=== PATIENT | female | born 1960 | race Caucasian/White ===

== ENCOUNTER 2017-04-18 10:44 | Emergency (ER) | payer MEDICARE, MEDICAID ==
--- NOTE | 2017-04-18 12:22 | ED Physician Documentation ---
PD HPI HEENT - Stated complaint Stated Complaint: SOA/VOMITING - Chief complaint Chief Complaint: Neuro - History obtained from History obtained from: Patient - History of Present Illness Timing - onset: How many days ago (3) Timing - duration: Days (3) Timing - details: Gradual onset, Waxing and waning (with worse and consistent symptoms today, assoicated now with vomiting with head movement.) Location: Other (having vertigo with head movement and change position.). No: Right ear, Left ear, Throat Worsens: Position (movement) Associated symptoms: No: Fever, Congestion, Swollen nodes, Facial swelling, Headache, Cough Similar symptoms before: Has not had sx before Recently seen: Not recently seen Review of Systems Constitutional: denies: Fever, Chills Ears: reports: Loss of hearing (slightly diminished right side.). denies: Ear pain, Drainage/discharge Nose: denies: Rhinorrhea / runny nose, Congestion, Sinus pressure / pain Throat: denies: Sore throat Respiratory: denies: Cough GI: reports: Nausea, Vomiting. 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 - Present Medications Home Medications: Ambulatory Orders Medication Instructions Recorded Confirmed Baclofen [Lioresal] 20 mg PO TID 01/24/13 04/18/17 Omeprazole 20 mg PO BID 01/24/13 04/18/17 Dexamethasone [Decadron] 4 mg PO DAILY #5 tablet 04/18/17 Meclizine [Antivert] 25 mg PO Q6H PRN 04/18/17 04/18/17 Meclizine [Antivert] 25 mg PO Q6H PRN #30 tablet 04/18/17 diazePAM [Diazepam] 5 mg PO TID PRN #15 tablet 04/18/17 - Allergies Allergies/Adverse Reactions: Allergies Allergy/AdvReac Type Severity Reaction Status Date / Time Tetracyclines Allergy Itching Verified 04/18/17 10:50 - Social History Does the pt smoke?: Yes Smoking Status: Current every day smoker Does the pt drink ETOH?: No Does the pt have substance abuse?: No - Immunizations Immunizations are current?: Yes PD ED PE NORMAL - Vitals Vital signs reviewed: Yes - General General: Alert and oriented X 3, No acute distress, Well developed/nourished - HEENT HEENT: PERRL, EOMI (with horizontal nystagmus to the right. 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, No motor deficit, No sensory deficit, Normal speech Eye Opening: Spontaneous Motor: Obeys Commands Verbal: Oriented GCS Score: 15 - Psych Psych: Normal mood, Normal affect Results - Vitals Vitals: Vital Signs - 24 hr 04/18/17 04/18/17 04/18/17 10:47 11:54 12:34 Temperature 36.0 C L 36.0 C L 36.9 C Heart Rate 85 76 87 Respiratory 20 28 H 24 Rate Blood Pressure 162/105 H 146/87 H 142/79 H O2 Saturation 98 100 98 04/18/17 04/18/17 04/18/17 13:07 14:13 14:53 Temperature 36.6 C 36.9 C 36.6 C Heart Rate 79 87 Respiratory 16 15 16 Rate Blood Pressure 153/80 H 147/83 H 154/91 H O2 Saturation 100 100 100 Oxygen O2 Source Room air - Labs Labs: Laboratory Tests 04/18/17 04/18/17 04/18/17 12:05 12:14 12:17 WBC 11.6 H RBC 4.80 Hgb 14.0 Hct 42.2 MCV 88.0 MCH 29.2 MCHC 33.2 RDW 13.6 Plt Count Not Reportable MPV 8.4 Neut # 9.6 H Lymph # 1.5 [place] # 0.4 Eos # 0.0 Baso # 0.1 Absolute Nucleated RBC 0.00 Nucleated RBC % 0.0 Manual Slide Review Indicated Platelet Morphology PLATELET CLUMPING Sodium 135 Potassium 4.0 Chloride 102 Carbon Dioxide 24 Anion Gap 9.0 BUN 16 Creatinine 0.7 Estimated GFR (MDRD) 86 L Glucose 127 H Calcium 8.8 Magnesium 1.7 Total Bilirubin 0.5 AST 22 ALT 19 Alkaline Phosphatase 73 Total Protein 7.8 Albumin 3.8 Globulin 4.0 Albumin/Globulin Ratio 1.0 Lipase 23 Urine Color Urine Clarity Urine pH Ur Specific [place] Urine Protein Urine Glucose (UA) Urine Ketones Urine Occult Blood Urine Nitrite Urine Bilirubin Urine Urobilinogen Ur Leukocyte Esterase Urine RBC Urine WBC Ur Squamous Epith Cells Urine Bacteria Ur Microscopic Review Urine Culture Comments 04/18/17 14:00 WBC RBC Hgb Hct MCV MCH MCHC RDW Plt Count MPV Neut # Lymph # [place] # Eos # Baso # Absolute Nucleated RBC Nucleated RBC % Manual Slide Review Platelet Morphology Sodium Potassium Chloride Carbon Dioxide Anion Gap BUN Creatinine Estimated GFR (MDRD) Glucose Calcium Magnesium Total Bilirubin AST ALT Alkaline Phosphatase Total Protein Albumin Globulin Albumin/Globulin Ratio Lipase Urine Color LT. YELLOW Urine Clarity CLEAR Urine pH 7.0 Ur Specific [place] 1.010 Urine Protein NEGATIVE Urine Glucose (UA) NEGATIVE Urine Ketones NEGATIVE Urine Occult Blood NEGATIVE Urine Nitrite NEGATIVE Urine Bilirubin NEGATIVE Urine Urobilinogen 0.2 (NORMAL) Ur Leukocyte Esterase TRACE H Urine RBC 0-5 Urine WBC 0-3 Ur Squamous Epith Cells RARE Squamous Urine Bacteria Rare Ur Microscopic Review INDICATED Urine Culture Comments INDICATED - Rads (name of study) head CT Radiology: Prelim report reviewed (normal), EMP read contemporaneously PD MEDICAL DECISION MAKING - ED course Complexity details: reviewed results (head CT okay and labs are okay. Her symptoms sound peripheral vertigo and I know CT is not as good as MRI, I feel this is reasonable screening at this point. Discussed with patient and she is okay with workup at this point and feeling much better with meds here. She feels wanting to head home. ), considered differential, d/w patient Departure - Departure Disposition: 01 Home, Self Care Clinical Impression: Vertigo Condition: Stable Record reviewed to determine appropriate education?: Yes Instructions: ED Vertigo Unspecified Prescriptions: Dexamethasone [Decadron] 4 mg PO DAILY #5 tablet diazePAM [Diazepam] 5 mg PO TID PRN #15 tablet PRN Reason: Dizziness Meclizine [Antivert] 25 mg PO Q6H PRN #30 tablet PRN Reason: Vertigo Comments: Normal diet and fluids. Have slow movements to lessen the vertigo. Decadron is a steroid anti-inflammatory use it daily to try to decrease the irritation in the inner ear. Use meclizine every 6-8 hours as needed for dizziness. If this is not adequate enough, add diazepam as well for the dizziness. Both will make a bit sleepy. Drink lots of fluids. Your blood tests and CT scan appear normal. The sounds like inner ear dizziness. Follow-up with your primary care if not improved over the next 3 or 4 days. Discharge Date/Time: 04/18/17 14:54
[2017-04-18 12:31] LABS: BASOPHILS # (AUTO) 0.1 10^3/uL (0.0-0.1); BASOPHILS % (AUTO) 0.4 %; EOSINOPHILS % (AUTO) 0.3 %; HCT - HEMATOCRIT 42.2 % (37.0-47.0); LYMPHOCYTES # (AUTO) 1.5 10^3/uL (1.5-3.5); MEAN CORPUSCULAR HEMOGLOBIN 29.2 pg (27.0-31.0); MEAN CORPUSCULAR HGB CONC 33.2 g/dL (32.0-36.0); MEAN PLATELET VOLUME 8.4 fL (7.9-10.8); MONOCYTES # (AUTO) 0.4 10^3/uL (0.0-1.0); MONOCYTES % (AUTO) 3.5 %; NEUTROPHILS # (AUTO) 9.6 10^3/uL (1.5-6.6); NEUTROPHILS % (AUTO) 82.8 %; RED CELL DISTRIBUTION WIDTH 13.6 % (12.0-15.0); UNCORRECTED WHITE BLOOD COUNT 12.9 x10^3/uL; WHITE BLOOD COUNT 11.6 x10^3/uL (4.8-10.8)
[2017-04-18 12:33] LABS: BILIRUBIN,TOTAL 0.5 mg/dL (0.2-1.0); CALCIUM 8.8 mg/dL (8.5-10.3); CREATININE 0.7 mg/dL (0.4-1.0); TOTAL PROTEIN 7.8 g/dL (6.7-8.2)
[2017-04-18] MEDS ORDERED: SODIUM CHLORIDE 0.9% 1,000 ML IV ONE (12:42)
[2017-04-18] MEDS ORDERED: diazePAM INJ 5 MG/ML SYRINGE IVP STA (12:43)
[2017-04-18] MEDS ORDERED: MECLIZINE 12.5 MG TABLET PO STA (12:43)
[2017-04-18] MEDS ORDERED: DEXAMETHASONE 10 MG/ML VIAL IVP STA (12:43)
[2017-04-18] MEDS ORDERED: ONDANSETRON 4 MG/2 ML VIAL IVP STA (12:43)
[2017-04-18 12:50] LABS: PLATELET MORPHOLOGY PLATELET CLUMPING (NORMAL)
[2017-04-18] MEDS ORDERED: DEXAMETHASONE 10 MG/ML VIAL ONE (12:57)
[2017-04-18] MEDS ORDERED: diazePAM INJ 5 MG/ML SYRINGE ONE (12:57)
[2017-04-18] MEDS ORDERED: MECLIZINE 12.5 MG TABLET PO ONE (12:58)
[2017-04-18] MEDS ORDERED: ONDANSETRON 4 MG/2 ML VIAL ONE (12:58)
--- NOTE | 2017-04-18 13:55 | CT Preliminary Report ---
Exam: CT HEAD W/O IMPRESSION: Normal head CT. [facility] SITE ID: [id number]
--- NOTE | 2017-04-18 13:58 | CT Report ---
EXAM: CT HEAD EXAM DATE: 04/18/2017 01:37 PM. CLINICAL HISTORY: Dizziness for few days. COMPARISON: 01/24/2013. TECHNIQUE: Multiaxial CT images were obtained from the foramen magnum to the vertex. Reformats: Coron al. IV contrast: None. In accordance with CT protocol optimization, one or more of the following dose reduction techniques w ere utilized for this exam: automated exposure control, adjustment of mA and/or KV based on patient s ize, or use of iterative reconstructive technique. FINDINGS: Parenchyma: No intraparenchymal hemorrhage. No evidence of mass, midline shift, or CT findings of inf arction. Owens-white differentiation is distinct. Extraaxial Spaces: Normal for age. No subdural or epidural collections identified. Ventricles: Normal in size and position. Sinuses and Orbits: Imaged paranasal sinuses, orbits, and mastoids show no significant abnormality. Bones: No evidence of fracture or calvarial defect. Other: None. IMPRESSION: Normal head CT. [facility] Referring Provider Line: [phone] SITE ID: [id number]
[2017-04-18 14:07] LABS: BILIRUBIN,URINE NEGATIVE (NEGATIVE)
[2017-04-18 14:11] LABS: UA w/ MICROSCOPIC CHARGE YES
[2017-04-18 14:17] LABS: UR CULTURE IF IND INDICATED
[2017-04-18 14:23] LABS: WBC,URINE 0-3 /HPF (0-5)
[2017-04-18 14:54] VITALS: BP 154/91
== END 2017-04-18 14:54 | disposition home or self-care (01) ==
LOC: ED 10:44
DX: R42 Dizziness and giddiness (principal); F17.200 Nicotine dependence, unspecified, uncomplicated
CPT/HCPCS: 36415; 70450; 80053; 81001; 83690; 83735; 85025; 87086; 93005; 96361; 96374; 96375; 99283; 99284; A9270; 81003

== ENCOUNTER 2020-12-28 19:53 | Emergency (ER) | payer MEDICARE, MEDICAID ==
[2020-12-28] MEDS ORDERED: HYDROmorphone 1 MG/ML CARPUJECT IVP STA (21:16)
[2020-12-28] MEDS ORDERED: SODIUM CHLORIDE 0.9% 1,000 ML IV STA (21:16)
[2020-12-28] MEDS ORDERED: METOCLOPRAMIDE 10 MG/2 ML VIAL IVP STA (21:17)
[2020-12-28] MEDS ORDERED: diphenhydrAMINE INJ 50 MG/ML VIAL IVP STA (21:17)
--- NOTE | 2020-12-28 21:22 | ED Physician Documentation ---
History of Present Illness - Stated complaint Stated Complaint: MIGRAINE,NAUSEA - Chief complaint Chief Complaint: Neuro - History obtained from History obtained from: Patient - Additonal information Additional information: 60yF with pmh migraine p/w severe headache "22/03" that has persisted since yesterday, gradual onset, generalized, a/w nausea, aching/throbbing quality, worse with bright lights. patient ran out of excedrin and other migraine meds at home. denies HT, neuro deficits, fever, neck pain. Review of Systems Ten Systems: 10 systems reviewed and negative Constitutional: denies: Fever, Chills Eyes: reports: Photophobia Ears: denies: Loss of hearing Nose: reports: Congestion ("from crying from the pain"). denies: Rhinorrhea / runny nose Musculoskeletal: denies: Neck pain Neurologic: reports: Headache. 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 - Present Medications Home Medications: Ambulatory Orders Medication Instructions Recorded Confirmed Baclofen [Lioresal] 20 mg PO TID 01/24/13 12/28/20 Omeprazole 20 mg PO BID 01/24/13 12/28/20 Meclizine [Antivert] 25 mg PO Q6H PRN 04/18/17 12/28/20 Meclizine [Antivert] 25 mg PO Q6H PRN #30 tablet 04/18/17 12/28/20 dexAMETHasone [Decadron] 4 mg PO DAILY #5 tablet 04/18/17 12/28/20 diazePAM [Diazepam] 5 mg PO TID PRN #15 tablet 04/18/17 12/28/20 Metoclopramide [Reglan] 10 mg PO Q6H PRN #30 tablet 12/28/20 SUMAtriptan [Imitrex] 25 mg PO PRN PRN 12/28/20 12/28/20 SUMAtriptan [Imitrex] 25 mg PO Q2H PRN #30 tablet 12/28/20 - Allergies Allergies/Adverse Reactions: Allergies Allergy/AdvReac Type Severity Reaction Status Date / Time Tetracyclines Allergy Itching Verified 12/28/20 20:16 - Social History Does the pt smoke?: Yes Smoking Status: Current every day smoker Does the pt drink ETOH?: No Does the pt have substance abuse?: No - Immunizations Immunizations are current?: Yes PD ED PE NORMAL - Vitals Vital signs reviewed: Yes - General General: Alert and oriented X 3, Well developed/nourished, Other (moderate emotional distress, crying in bed, covering face) - HEENT HEENT: Atraumatic, PERRL, EOMI - Neck Neck: Supple, no meningeal sign - Derm Derm: Normal color, Warm and dry - Neuro Neuro: Alert and oriented X 3, 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, No motor deficit, No sensory deficit Results - Vitals Vitals: Vital Signs - 24 hr 12/28/20 12/28/20 12/28/20 20:12 20:39 22:16 Temperature 38.1 C H 37.1 C Heart Rate 107 H 100 88 Respiratory 16 16 16 Rate Blood Pressure 160/91 H 160/91 H 145/81 H O2 Saturation 95 95 95 Oxygen O2 Source Room air - Labs Labs: Laboratory Tests 12/28/20 12/28/20 21:38 21:38 WBC 5.3 RBC 4.40 Hgb 12.5 Hct 38.6 MCV 87.7 MCH 28.4 MCHC 32.4 RDW 13.8 Plt Count 208 MPV 8.8 Neut # (Auto) 3.3 Lymph # (Auto) 0.8 L [place] # (Auto) 1.0 Eos # (Auto) 0.0 Baso # (Auto) 0.0 Absolute Nucleated RBC 0.00 Nucleated RBC % 0.0 Sodium 134 L Potassium 4.3 Chloride 99 L Carbon Dioxide 26 Anion Gap 9.0 BUN 12 Creatinine 0.8 Estimated GFR (MDRD) 73 L Glucose 91 Calcium 8.8 PD MEDICAL DECISION MAKING - ED course ED course: 30-year-old woman presented with migraine headache that is extremely severe and persistent. Will obtain CT angio to evaluate for intracranial pathology and treat symptoms and reevaluate. 10:30pm- patient refusing CT, stating her headache is improved and she wants to go home. neuro intact. AOX4. will dc home with return precautions. f/u with pmd for referral to neuro. Departure - Departure Disposition: 01 Home, Self Care Clinical Impression: Migraine Condition: Good Instructions: ED Headache Migraine Prescriptions: SUMAtriptan [Imitrex] 25 mg PO Q2H PRN #30 tablet PRN Reason: Headache Metoclopramide [Reglan] 10 mg PO Q6H PRN #30 tablet PRN Reason: Nausea / Vomiting Comments: You are seen in the emergency department for Evaluation of headache. I am glad that you are feeling better. Please return to the emergency department immediately if you change your mind about ct, have any new or worsening symptoms or other concerns. Follow-up with your primary doctor for referral to neurology.
[2020-12-28] MEDS ORDERED: IOPAMIDOL-300 100 ML VIAL ONE (21:37)
[2020-12-28 21:44] LABS: BASOPHILS % (AUTO) 0.2 %; EOSINOPHILS % (AUTO) 0.6 %; HCT - HEMATOCRIT 38.6 % (37.0-47.0); HGB - HEMOGLOBIN 12.5 g/dL (12.0-16.0); LYMPHOCYTES # (AUTO) 0.8 10^3/uL (1.5-3.5); MEAN CORPUSCULAR HEMOGLOBIN 28.4 pg (27.0-31.0); MEAN CORPUSCULAR HGB CONC 32.4 g/dL (32.0-36.0); MEAN CORPUSCULAR VOLUME 87.7 fL (81.0-99.0); MEAN PLATELET VOLUME 8.8 fL (7.9-10.8); MONOCYTES % (AUTO) 19.4 %; NEUTROPHILS # (AUTO) 3.3 10^3/uL (1.5-6.6); NEUTROPHILS % (AUTO) 63.2 %; PLT - PLATELET COUNT 208 10^3/uL (130-450); RED CELL DISTRIBUTION WIDTH 13.8 % (12.0-15.0); WHITE BLOOD COUNT 5.3 x10^3/uL (4.8-10.8)
[2020-12-28 21:53] LABS: CALCIUM 8.8 mg/dL (8.5-10.3); CREATININE 0.8 mg/dL (0.4-1.0); POTASSIUM 4.3 mmol/L (3.5-5.0)
[2020-12-28 22:43] VITALS: BP 150/80
== END 2020-12-28 22:42 | disposition home or self-care (01) ==
LOC: ED 19:53
DX: G43.909 Migraine, unspecified, not intractable, without status migrainosus (principal); F17.200 Nicotine dependence, unspecified, uncomplicated
CPT/HCPCS: 36415; 80048; 85025; 96374; 96375; 99284; J1170; J1200; J2765

== ENCOUNTER 2022-04-07 19:33 | Emergency (ER) | payer MEDICARE, MEDICAID ==
[2022-04-07] MEDS ORDERED: ALBUTEROL NEB 2.5 MG/3 ML INH STA ×2 (19:44→20:59)
--- NOTE | 2022-04-07 20:02 | ED Physician Documentation ---
PD HPI DYSPNEA - Stated complaint Stated Complaint: SOA,CHEST PX,FEVER - Chief complaint Chief Complaint: Resp - History obtained from History obtained from: Patient - History of Present Illness Timing - onset: How many days ago (several) Timing - onset during: Rest, Light activity Timing - duration: Days Timing - details: Gradual onset, Still present Inciting event(s): URI, Other (COPD likely without diagnosis, but h/o wheezing and has long smoking history.). No: Out of meds Improved by: O2, Inhaler/neb Worsened by: Exertion, Coughing. No: Laying flat Associated symptoms: Fever, Cough, Wheezing, Chest pain / discomfort. No: Hemoptysis, Palpitations, Bilateral edema Similar symptoms before: Has not had sx before Recently seen: Not recently seen Review of Systems Constitutional: reports: Fever Nose: reports: Rhinorrhea / runny nose, Congestion Cardiac: reports: Chest pain / pressure (with coughing). denies: Palpitations, Pedal edema, Calf pain Respiratory: reports: Dyspnea, Cough, Wheezing GI: reports: Nausea, Diarrhea. denies: Abdominal Pain, Vomiting Skin: denies: Rash, Lesions Neurologic: reports: Generalized weakness, Headache. denies: Near syncope, Altered mental status PD PAST MEDICAL HISTORY - Past Medical History Respiratory: None (none diagnosed but gets wheezy with activity and has long history of smoking. 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 - Present Medications Home Medications: Ambulatory Orders Medication Instructions Recorded Confirmed Omeprazole 20 mg PO BID 01/24/13 04/08/22 SUMAtriptan [Imitrex] 25 mg PO PRN PRN 12/28/20 04/08/22 Albuterol Sulf [Ventolin Hfa 2 - 3 puffs INH Q4HR PRN #1 each 04/07/22 Inhaler] Benzonatate [Tessalon] 100 mg PO TID PRN #20 cap 04/07/22 HYDROcod/ACETAM 5/325 [[place] 5/325] 1 ea PO Q6H PRN #14 tablet 04/07/22 cefUROXime axetiL [Ceftin] 250 mg PO Q12H #10 tablet 04/07/22 dexAMETHasone [Decadron] 4 mg PO DAILY #5 tablet 04/07/22 Furosemide [Lasix] 20 mg PO DAILY 04/08/22 04/08/22 Potassium Chloride 20 tab PO DAILY 04/08/22 04/08/22 Pregabalin [Lyrica] 50 mg PO DAILY 04/08/22 04/08/22 hydroCHLOROthiazide [Hydrodiuril] 25 mg PO DAILY 04/08/22 04/08/22 - Allergies Allergies/Adverse Reactions: Allergies Allergy/AdvReac Type Severity Reaction Status Date / Time Tetracyclines Allergy Itching Verified 04/07/22 19:47 - Social History Does the pt smoke?: Yes Smoking Status: Current every day smoker Does the pt drink ETOH?: No Does the pt have substance abuse?: No - Immunizations Immunizations are current?: Yes PD ED PE NORMAL - Vitals Vital signs reviewed: Yes - General General: Alert and oriented X 3, Well developed/nourished, Other (appears ill but able to talk sentences and sats good. Mild tachycardia. Wheezing and tachypnea. ) - HEENT HEENT: Ears normal, Moist mucous membranes, Pharynx benign - Neck Neck: Supple, no meningeal sign, No adenopathy - Respiratory Respiratory: No: Clear bilaterally (wet wheezing and coarse left upper as well. ) - Abdomen Abdomen: Soft, Non tender - Back Back: No CVA TTP - Derm Derm: Normal color, Warm and dry - Extremities Extremities: No edema, No calf tenderness / cord Results - Vitals Vitals: Vital Signs - 24 hr 04/07/22 04/07/22 04/07/22 22:40 23:20 23:55 Temperature 36.3 C L 37.1 C Heart Rate 98 96 95 Respiratory 24 20 20 Rate Blood Pressure 107/56 L 110/68 O2 Saturation 97 97 Oxygen O2 Source Room air - Labs Labs: Laboratory Tests 04/07/22 04/07/22 04/07/22 20:02 20:02 20:02 WBC 36.4 H* RBC 4.03 L Hgb 11.6 L Hct 34.2 L MCV 84.9 MCH 28.8 MCHC 33.9 RDW 13.2 Plt Count 243 MPV 8.8 Neut # (Auto) 31.2 H Lymph # (Auto) 1.7 [place] # (Auto) 1.3 H Eos # (Auto) 0.0 Baso # (Auto) 0.1 Absolute Nucleated RBC 0.00 Band Neuts % (Manual) Not Reportable Abnorm Lymph % (Manual) Not Reportable Nucleated RBC % 0.0 Neutrophils # (Manual) Not Reportable Lymphocytes # (Manual) Not Reportable Monocytes # (Manual) Not Reportable Eosinophils # (Manual) Not Reportable Basophils # (Manual) Not Reportable Differential Comment MANUAL=AUTO DIFF Manual Slide Review Indicated Platelet Estimate NORMAL (130-450,000) Platelet Morphology NORMAL APPEARANCE RBC Morph Micro Appear NORMAL APPEARANCE Sodium 131 L Potassium 3.2 L Chloride 94 L Carbon Dioxide 28 Anion Gap 9.0 BUN 40 H Creatinine 1.2 H Estimated GFR (MDRD) 46 L Glucose 120 H Lactic Acid Calcium 8.3 L Total Bilirubin 0.7 AST 20 ALT 14 Alkaline Phosphatase 68 Troponin I High Sens 7.9 B-Natriuretic Peptide Total Protein 7.0 Albumin 3.1 L Globulin 3.9 Albumin/Globulin Ratio 0.8 L Lipase 23 Nasal Adenovirus (PCR) Nasal B. parapertussis DNA (PCR) Nasal Coronavir 229E PCR Nasal Coronavir HKU1 PCR Nasal Coronavir NL63 PCR Nasal Coronavir OC43 PCR Nasal Enterovir/Rhinovir PCR Nasal Influenza B PCR Nasal Influenza A PCR Nasal Parainfluen 1 PCR Nasal Parainfluen 2 PCR Nasal Parainfluen 3 PCR Nasal Parainfluen 4 PCR Nasal RSV (PCR) Nasal B.pertussis DNA PCR Nasal C.pneumoniae (PCR) [place] Human Metapneumo PCR Nasal M.pneumoniae (PCR) Nasal SARS-CoV-2 (PCR) 04/07/22 04/07/22 04/07/22 20:02 20:16 21:42 WBC RBC Hgb Hct MCV MCH MCHC RDW Plt Count MPV Neut # (Auto) Lymph # (Auto) [place] # (Auto) Eos # (Auto) Baso # (Auto) Absolute Nucleated RBC Band Neuts % (Manual) Abnorm Lymph % (Manual) Nucleated RBC % Neutrophils # (Manual) Lymphocytes # (Manual) Monocytes # (Manual) Eosinophils # (Manual) Basophils # (Manual) Differential Comment Manual Slide Review Platelet Estimate Platelet Morphology RBC Morph Micro Appear Sodium Potassium Chloride Carbon Dioxide Anion Gap BUN Creatinine Estimated GFR (MDRD) Glucose Lactic Acid 1.9 Calcium Total Bilirubin AST ALT Alkaline Phosphatase Troponin I High Sens B-Natriuretic Peptide 64 Total Protein Albumin Globulin Albumin/Globulin Ratio Lipase Nasal Adenovirus (PCR) NOT DETECTED Nasal B. parapertussis DNA (PCR) NOT DETECTED Nasal Coronavir 229E PCR NOT DETECTED Nasal Coronavir HKU1 PCR NOT DETECTED Nasal Coronavir NL63 PCR NOT DETECTED Nasal Coronavir OC43 PCR NOT DETECTED Nasal Enterovir/Rhinovir PCR NOT DETECTED Nasal Influenza B PCR NOT DETECTED Nasal Influenza A PCR NOT DETECTED Nasal Parainfluen 1 PCR NOT DETECTED Nasal Parainfluen 2 PCR NOT DETECTED Nasal Parainfluen 3 PCR NOT DETECTED Nasal Parainfluen 4 PCR NOT DETECTED Nasal RSV (PCR) DETECTED A Nasal B.pertussis DNA PCR NOT DETECTED Nasal C.pneumoniae (PCR) NOT DETECTED [place] Human Metapneumo PCR NOT DETECTED Nasal M.pneumoniae (PCR) NOT DETECTED Nasal SARS-CoV-2 (PCR) NOT DETECTED - Rads (name of study) chest xray Radiology: Prelim report reviewed (large rounded infiltrate left upper lung. ), See rad report chest CT Radiology: Prelim report reviewed (pneumonia without mass/neoplasms), See rad report PD MEDICAL DECISION MAKING - ED course Complexity details: reviewed results, re-evaluated patient (still some tachypnea and mild work of breathing. Sats are good and able to talk sentences. Does not appear septic. Elevated WBC count. PSI score of 30s puts her at Level 3, and not indicated for hospitalization. I think she appears like she will get worse but not admissable at this time.), considered differential (has wheezing and seems pneumonia. Appears ill but not meeting criteria for hospitalization, though I think she looks ill. Still wheezing after nebs and fast breathing, but sats are 97%. ), d/w patient Departure - Departure Disposition: 01 Home, Self Care Clinical Impression: Dyspnea, Pneumonia due to respiratory syncytial virus (RSV) Condition: Stable Record reviewed to determine appropriate education?: Yes Instructions: ED RSV Bronchiolitis, ED Pneumonia Adult Prescriptions: Albuterol Sulf [Ventolin Hfa Inhaler] 2 - 3 puffs INH Q4HR PRN #1 each PRN Reason: Shortness Of Air/Wheezing cefUROXime axetiL [Ceftin] 250 mg PO Q12H #10 tablet dexAMETHasone [Decadron] 4 mg PO DAILY #5 tablet HYDROcod/ACETAM 5/325 [[place] 5/325] 1 ea PO Q6H PRN #14 tablet PRN Reason: Pain Benzonatate [Tessalon] 100 mg PO TID PRN #20 cap PRN Reason: Cough Comments: Your respiratory PCR test is positive for RSV which is a virus that causes a lot of coughing and wheezing and mucus. Your chest x-ray also shows an area of pneumonia on the left side. This may be still the viral RSV causing that but we commonly will go some antibiotics in case of bacterial as well. Use the albuterol inhaler 2 to 3 puffs 4 times a day regularly for the next several days to week. Ceftin antibiotic twice daily for 5 days. You can use Tessalon if needed for cough. I also prescribed hydrocodone tablets that you could use for pain and also can be useful for cough suppression. These can be taken every 6 hours if needed. Given your smoking history, even though you do not have prior diagnosis of asthma/COPD, there probably is some element of underlying inflammatory lung disease as well as the current illness so I also prescribed a steroid medication for the next 5 days. At this point even though your having a lot of cough and congestion and do not feel well, you do not have indicators that would signify a need for hospitalization, such as low oxygen level etc. However return to the ER if not feeling improving over the next couple of days and sooner if worsening. Discharge Date/Time: 04/07/22 23:58
[2022-04-07 20:10] LABS: BASOPHILS # (AUTO) 0.1 10^3/uL (0.0-0.1); BASOPHILS % (AUTO) 0.3 %; HCT - HEMATOCRIT 34.2 % (37.0-47.0); HGB - HEMOGLOBIN 11.6 g/dL (12.0-16.0); LYMPHOCYTES # (AUTO) 1.7 10^3/uL (1.5-3.5); LYMPHOCYTES % (AUTO) 4.7 %; MEAN CORPUSCULAR HEMOGLOBIN 28.8 pg (27.0-31.0); MEAN CORPUSCULAR HGB CONC 33.9 g/dL (32.0-36.0); MEAN CORPUSCULAR VOLUME 84.9 fL (81.0-99.0); MEAN PLATELET VOLUME 8.8 fL (7.9-10.8); MONOCYTES # (AUTO) 1.3 10^3/uL (0.0-1.0); MONOCYTES % (AUTO) 3.7 %; NEUTROPHILS # (AUTO) 31.2 10^3/uL (1.5-6.6); NEUTROPHILS % (AUTO) 85.6 %; PLT - PLATELET COUNT 243 10^3/uL (130-450); RED BLOOD COUNT 4.03 10^6/uL (4.20-5.40); RED CELL DISTRIBUTION WIDTH 13.2 % (12.0-15.0)
[2022-04-07] MEDS ORDERED: IPRATROPIUM/ALBUTEROL 3 ML NEB INH STA (20:10)
[2022-04-07] MEDS ORDERED: DEXAMETHASONE 10 MG/ML VIAL IVP STA (20:11)
--- NOTE | 2022-04-07 20:13 | XRAY Report ---
PROCEDURE: Chest 1 View X-Ray INDICATIONS: Chest pain TECHNIQUE: One view of the chest was acquired. COMPARISON: None. FINDINGS: Surgical changes and devices: None. Lungs and pleura: No pleural effusions or pneumothorax. Lungs are abnormal, with what appears to be focal pneumonia left midlung over an area estimated to measure up to 8.5 cm. Alternatively, a lung m ass could produce this appearance. Mediastinum: Mediastinal contours appear normal. Heart size is normal. Bones and chest wall: No suspicious bony lesions. Overlying soft tissues appear unremarkable. IMPRESSION: 8.5 cm region of pneumonia versus neoplasm left midlung. Please correlate for evidence of infection. Reviewed by: Miki Pantoja MD on 04/07/2022 8:12 PM PDT Approved by: Miki Pantoja MD on 04/07/2022 8:12 PM PDT Station ID: [id number]
[2022-04-07 20:23] LABS: SLIDE REVIEW? Indicated; WHITE BLOOD COUNT 36.4 x10^3/uL (4.8-10.8)
[2022-04-07 20:29] LABS: ALBUMIN 3.1 g/dL (3.2-5.5); ALBUMIN/GLOBULIN RATIO 0.8 (1.0-2.2); BILIRUBIN,TOTAL 0.7 mg/dL (0.2-1.0); CALCIUM 8.3 mg/dL (8.5-10.3); CREATININE 1.2 mg/dL (0.4-1.0); POTASSIUM 3.2 mmol/L (3.5-5.0)
[2022-04-07 20:36] LABS: DIFFERENTIAL COMMENT MANUAL=AUTO DIFF; PLATELET ESTIMATE, MANUAL NORMAL (130-450,000) (NORMAL); PLATELET MORPHOLOGY NORMAL APPEARANCE (NORMAL); RBC MORPHOLOGY (MULTIPLE) NORMAL APPEARANCE (NORMAL)
[2022-04-07] MEDS ORDERED: cefTRIAXone 1 GM VIAL IVP STA (20:43)
[2022-04-07] MEDS ORDERED: BENZONATATE 100 MG CAPSULE PO STA (20:43)
[2022-04-07] MEDS ORDERED: AZITHROMYCIN 250 MG TABLET PO STA (20:43)
[2022-04-07] MEDS ORDERED: AZITHROMYCIN 100 MG/5 ML SYRINGE PO STA (20:43)
[2022-04-07] MEDS ORDERED: iohexoL-300 100 ML VIAL ONE (21:09)
[2022-04-07 21:17] LABS: B. PARAPERTUSSIS- RESP PCR PAN NOT DETECTED; B. PERTUSSIS- RESP PCR PANEL NOT DETECTED; C. PNEUMONIAE- RESP PCR PANEL NOT DETECTED; CORONAVIRUS 229E-RESP PCR NOT DETECTED; CORONAVIRUS HKU1-RESP PCR NOT DETECTED; CORONAVIRUS NL63-RESP PCR NOT DETECTED; CORONAVIRUS OC43-RESP PCR NOT DETECTED; HUMAN METAPNEUMOVIRUS NOT DETECTED; INFLUENZA A- RESP PCR PANEL NOT DETECTED; INFLUENZA B - RESP PCR PANEL NOT DETECTED; M. PNEUMONIAE- RESP PCR PANEL NOT DETECTED; PARAINFLUENZA VIRUS 1 NOT DETECTED; PARAINFLUENZA VIRUS 2 NOT DETECTED; PARAINFLUENZA VIRUS 3 NOT DETECTED; PARAINFLUENZA VIRUS 4 NOT DETECTED; RHINOVIRUS/ENTEROVIRUS NOT DETECTED; RSV- RESP PCR PANEL DETECTED; SARS-CoV-2 -RESP PCR PANEL NOT DETECTED
[2022-04-07] MEDS ORDERED: ACETAMINOPHEN 325 MG TABLET PO STA (21:29)
[2022-04-07] MEDS ORDERED: KETOROLAC 15 MG/ML VIAL IVP STA (21:29)
[2022-04-07] MEDS ORDERED: iohexoL-300 100 ML VIAL IVP ONE (22:04)
[2022-04-07] MEDS ORDERED: HYDROmorphone 1 MG/ML CARPUJECT IVP STA (22:12)
--- NOTE | 2022-04-07 22:32 | CT Report ---
PROCEDURE: CHEST W INDICATIONS: left upper infiltrate vs mass on CXR CONTRAST:100 ML OPMNI 300 TECHNIQUE: After the administration of intravenous contrast, 1 mm axial images were acquired from the pulmonary apices through the posterior costophrenic angles. Axial 5 mm soft tissue kernel reconstructions were performed as well as 8 mm axial MIP and coronal and sagittal 5 mm reformations. For radiation dose reduction, the following was used: automated exposure control, adjustment of mA and/or kV according to patient size. COMPARISON: Chest plain film earlier today reviewed.. FINDINGS: Image quality: Excellent. Lungs and pleura: The rounded relatively sharply demarcated radiodensity seen by plain film imaging e arlier same day is found represent a dense "round pneumonia" within the left upper lobe. Air bronchog juan miguel can be seen traversing this area of infiltration.. No pleural effusions or pneumothorax. Centr al and peripheral airways are patent and normal in caliber. Mediastinum: Heart size is normal. No pericardial effusion. No mediastinal or hilar adenopathy by size criteria. Thoracic aorta and central pulmonary arteries are normal in size. Esophagus is balta l in caliber. No hiatal hernia. Bones and chest wall: No suspicious bony lesions. No vertebral body compression fractures. No axil kirk or supraclavicular adenopathy by size criteria. The thyroid is normal in size and there are no incidental findings.. Abdomen: Visualized upper abdominal solid organs appear normal. Upper abdominal bowel loops are nor mal in caliber. IMPRESSION: A dense "round pneumonia" produces the radiodensity of plain film concern from earlier today. No will gnancy is identified. No pulmonary embolus is suspected. CLINICAL RECOMMENDATION STATEMENTS: In patients <35 years with an ITN detected on CT, MRI, or extrathyroidal ultrasound, the Committee re commends further evaluation with dedicated thyroid ultrasound if the nodule is "e1 cm and has no susp icious imaging features, and if the patient has normal life expectancy. In patients "e35 years with an ITN detected on CT, MRI, or extrathyroidal ultrasound, the Committee r ecommends further evaluation with dedicated thyroid ultrasound if the nodule is "e1.5 cm and has no s uspicious imaging features, and if the patient has normal life expectancy. (ACR, 2014) Reviewed by: Miki Pantoja MD on 04/07/2022 10:31 PM PDT Approved by: Miki Pantoja MD on 04/07/2022 10:31 PM PDT Station ID: [id number]
[2022-04-07] MEDS ORDERED: ALBUTEROL 1 PUFF INH STA (22:54)
[2022-04-07] MEDS ORDERED: CETIRIZINE 10 MG TABLET PO STA (22:55)
[2022-04-07] MEDS ORDERED: guaiFENesin 100 MG/5 ML UDC PO STA (22:55)
[2022-04-08 04:06] VITALS: BP 110/68
== END 2022-04-07 23:58 | disposition home or self-care (01) ==
LOC: ED 19:33
DX: J12.1 Respiratory syncytial virus pneumonia (principal); F17.200 Nicotine dependence, unspecified, uncomplicated; Z20.822 Contact with and (suspected) exposure to COVID-19
CPT/HCPCS: 36415; 71045; 71260; 80053; 83605; 83690; 83880; 84484; 85025; 87633; 93005; 94640; 96374; 96375; 99284; 99285; A9270; J1170; Q9967

== ENCOUNTER 2022-11-08 11:38 | Emergency (ER) | payer MEDICARE, MEDICAID ==
--- NOTE | 2022-11-08 12:20 | XRAY Report ---
PROCEDURE: Chest 2 View X-Ray INDICATIONS: cough TECHNIQUE: 2 views of the chest were acquired. COMPARISON: None. FINDINGS: Surgical changes and devices: None. Lungs and pleura: Diffuse increased pulmonary markings and peribronchial cuffing. Mediastinum: Mediastinal contours appear normal. Heart size is normal. Bones and chest wall: No suspicious bony lesions. Overlying soft tissues appear unremarkable. IMPRESSION: Suspect moderate interstitial edema, given peribronchial cuffing and smooth interstitial thickening. Atypical infection not excluded. Reviewed by: Kareem Delgado on 11/08/2022 12:18 PM PDT Approved by: Kareem Delgado on 11/08/2022 12:18 PM PDT Station ID: [id number]
--- NOTE | 2022-11-08 13:02 | ED Physician Documentation ---
History of Present Illness - Stated complaint Stated Complaint: COUGH, GEN WEAKNESS - Chief complaint Chief Complaint: General - History obtained from History obtained from: Patient - History of Present Illness Timing: Yesterday Pain level max: 0 Pain level now: 0 - Additonal information Additional information: 61-year-old female presents to the emergency department complaining of rhinorrhea, cough, congestion for the past 24 hours. Body aches today. Nothing makes it better or worse. She has used inhalers in the past but states she is not using one currently. She does smoke cigarettes. No fevers that she is aware of. No nausea or vomiting. No diarrhea or constipation. No urinary symptoms. Cough is mainly dry. Review of Systems Constitutional: reports: Myalgias. denies: Fever, Chills Nose: reports: Rhinorrhea / runny nose, Congestion Respiratory: reports: Cough, Wheezing GI: denies: Nausea, Vomiting, Diarrhea Skin: denies: Rash Musculoskeletal: denies: Neck pain, Back pain Neurologic: denies: Headache PD PAST MEDICAL HISTORY - Past Medical History Past Medical History: Yes Respiratory: None Neuro: Migraines Endocrine/Autoimmune: None GI: None, Cirrhosis Psych: Depression, Anxiety Musculoskeletal: Osteoarthritis - Past Surgical History Past Surgical History: Yes General: Appendectomy /[employer]: section, Hysterectomy, Oophrectomy - Present Medications Home Medications: Ambulatory Orders Medication Instructions Recorded Confirmed Omeprazole 20 mg PO BID 01/24/13 04/08/22 SUMAtriptan [Imitrex] 25 mg PO PRN PRN 12/28/20 04/08/22 Albuterol Sulf [Ventolin Hfa 2 - 3 puffs INH Q4HR PRN #1 each 04/07/22 Inhaler] Benzonatate [Tessalon] 100 mg PO TID PRN #20 cap 04/07/22 HYDROcod/ACETAM 5/325 [Persia 5/325] 1 ea PO Q6H PRN #14 tablet 04/07/22 cefUROXime axetiL [Ceftin] 250 mg PO Q12H #10 tablet 04/07/22 dexAMETHasone [Decadron] 4 mg PO DAILY #5 tablet 04/07/22 Furosemide [Lasix] 20 mg PO DAILY 04/08/22 04/08/22 Potassium Chloride 20 tab PO DAILY 04/08/22 04/08/22 Pregabalin [Lyrica] 50 mg PO DAILY 04/08/22 04/08/22 hydroCHLOROthiazide [Hydrodiuril] 25 mg PO DAILY 04/08/22 04/08/22 Albuterol Sulf [Ventolin Hfa 1 - 2 puffs INH Q4HR PRN #1 each 11/08/22 Inhaler] Amox/Clav 875/125 [Augmentin] 1 tab PO Q12H #20 tablet 11/08/22 Azithromycin [Zithromax] 0 mg PO DAILY #6 tablet 11/08/22 Benzonatate [Tessalon] 200 mg PO TID PRN #30 cap 11/08/22 - Allergies Allergies/Adverse Reactions: Allergies Allergy/AdvReac Type Severity Reaction Status Date / Time Tetracyclines Allergy Itching Verified 11/08/22 11:57 - Social History Does the pt smoke?: Yes Smoking Status: Current every day smoker Does the pt drink ETOH?: No Does the pt have substance abuse?: No - Immunizations Immunizations are current?: Yes - POLST Patient has POLST: No PD ED PE NORMAL - Vitals Vital signs reviewed: Yes - General General: Alert and oriented X 3, No acute distress - HEENT HEENT: PERRL, Ears normal, Moist mucous membranes, Pharynx benign - Neck Neck: Supple, no meningeal sign - Cardiac Cardiac: RRR - Respiratory Respiratory: Other (wheezing, rhonchi B) - Abdomen Abdomen: Soft, Non tender, Non distended - Back Back: No spinal TTP - Derm Derm: Warm and dry - Neuro Neuro: Alert and oriented X 3 - Psych Psych: Normal mood, Normal affect Results - Vitals Vitals: Vital Signs - 24 hr 11/08/22 11/08/22 11/08/22 11:54 13:20 14:08 Temperature 36.7 C 98.1 C H Heart Rate 89 84 97 Respiratory 20 22 16 Rate Blood Pressure 143/78 H 127/81 H O2 Saturation 98 98 Oxygen O2 Source Room air - Labs Labs: Laboratory Tests 11/08/22 12:51 Nasal Adenovirus (PCR) NOT DETECTED Nasal B. parapertussis DNA (PCR) NOT DETECTED Nasal Coronavir 229E PCR NOT DETECTED Nasal Coronavir HKU1 PCR NOT DETECTED Nasal Coronavir NL63 PCR NOT DETECTED Nasal Coronavir OC43 PCR NOT DETECTED Nasal Enterovir/Rhinovir PCR NOT DETECTED Nasal Influenza B PCR NOT DETECTED Nasal Influenza A PCR NOT DETECTED Nasal Parainfluen 1 PCR NOT DETECTED Nasal Parainfluen 2 PCR NOT DETECTED Nasal Parainfluen 3 PCR NOT DETECTED Nasal Parainfluen 4 PCR NOT DETECTED Nasal RSV (PCR) NOT DETECTED Nasal B.pertussis DNA PCR NOT DETECTED Nasal C.pneumoniae (PCR) NOT DETECTED Rodriguez Human Metapneumo PCR NOT DETECTED Nasal M.pneumoniae (PCR) NOT DETECTED Nasal SARS-CoV-2 (PCR) NOT DETECTED - Rads (name of study) Chest x-ray. Relevant Findings:: Final report received, See rad report PD Medical Decision Making - ED course Complexity details: reviewed results, re-evaluated patient, considered differential, d/w patient ED course: 61-year-old female with a history of smoking and inhaler use has not been using her inhaler. She does feel better after a DuoNeb treatment here. Her chest x- ray is consistent with possible atypical pneumonia. Respiratory PCR is negative. No hypoxia. No respiratory distress. Patient is well-appearing, nontoxic. Will place on antibiotics for possible pneumonia. Patient counseled regarding signs and symptoms for which I believe and urgent re-evaluation would be necessary. Patient with good understanding of and agreement to plan and is comfortable going home at this time This document was made in part using voice recognition software. While efforts are made to proofread this document, sound alike and grammatical errors may occur. Departure - Departure Disposition: 01 Home, Self Care Clinical Impression: Atypical pneumonia Condition: Good Instructions: ED Pneumonia Adult Follow-Up: your,doctor in 1 week [Other] Prescriptions: Albuterol Sulf [Ventolin Hfa Inhaler] 1 - 2 puffs INH Q4HR PRN #1 each PRN Reason: Shortness Of Air/Wheezing Amox/Clav 875/125 [Augmentin] 1 tab PO Q12H #20 tablet Benzonatate [Tessalon] 200 mg PO TID PRN #30 cap PRN Reason: Cough Azithromycin [Zithromax] 0 mg PO DAILY #6 tablet Comments: Your prescriptions were sent to [facility] in [place]. Please take all antibiotics until gone. Use the inhaler as needed at home. It appears that you have atypical pneumonia on your chest x-ray. We also recommend that you stop smoking. Discharge Date/Time: 11/08/22 14:33
[2022-11-08] MEDS ORDERED: BENZONATATE 100 MG CAPSULE PO STA (13:09)
[2022-11-08] MEDS ORDERED: IPRATROPIUM/ALBUTEROL 3 ML NEB INH STA (13:09)
[2022-11-08 13:47] LABS: B. PARAPERTUSSIS- RESP PCR PAN NOT DETECTED; B. PERTUSSIS- RESP PCR PANEL NOT DETECTED; C. PNEUMONIAE- RESP PCR PANEL NOT DETECTED; CORONAVIRUS 229E-RESP PCR NOT DETECTED; CORONAVIRUS HKU1-RESP PCR NOT DETECTED; CORONAVIRUS NL63-RESP PCR NOT DETECTED; CORONAVIRUS OC43-RESP PCR NOT DETECTED; HUMAN METAPNEUMOVIRUS NOT DETECTED; INFLUENZA A- RESP PCR PANEL NOT DETECTED; INFLUENZA B - RESP PCR PANEL NOT DETECTED; M. PNEUMONIAE- RESP PCR PANEL NOT DETECTED; PARAINFLUENZA VIRUS 1 NOT DETECTED; PARAINFLUENZA VIRUS 2 NOT DETECTED; PARAINFLUENZA VIRUS 3 NOT DETECTED; PARAINFLUENZA VIRUS 4 NOT DETECTED; RHINOVIRUS/ENTEROVIRUS NOT DETECTED; RSV- RESP PCR PANEL NOT DETECTED; SARS-CoV-2 -RESP PCR PANEL NOT DETECTED
[2022-11-08 14:09] VITALS: BP 127/81
== END 2022-11-08 14:33 | disposition home or self-care (01) ==
LOC: ED 11:38
DX: J18.9 Pneumonia, unspecified organism (principal); F17.200 Nicotine dependence, unspecified, uncomplicated; Z20.822 Contact with and (suspected) exposure to COVID-19
CPT/HCPCS: 71046; 87633; 94640; 94664; 99283; A9270

== ENCOUNTER 2023-06-02 05:09 | Emergency (ER) | payer MEDICARE, MEDICAID | END 2023-06-02 06:33 | disposition left against medical advice (07) | LOC: ED 05:09 | DX: Z53.21 Procedure and treatment not carried out due to patient leaving prior to being seen by health care provider (principal) ==